=== PATIENT | female | born 1945 | race Caucasian/White ===

== ENCOUNTER 2018-06-27 06:52 | Day surgery (SDC) | payer MEDICARE ==
[~2018-06-27] VITALS: Ht 161.3 cm; Wt 64.0 kg
[2018-06-27] MEDS ORDERED: LACTATED RINGERS 1,000 ML IV SCH (07:50)
[2018-06-27 08:04] VITALS: BP 125/76
[2018-06-27] MEDS ORDERED: CYCL1DRO EACHEYE (08:04)
[2018-06-27] MEDS ORDERED: LEVO125T PO (08:04)
[2018-06-27] MEDS ORDERED: LEVO112T2 PO (08:04)
[2018-06-27] MEDS ORDERED: B-CA1TAB PO (08:04)
[2018-06-27] MEDS ORDERED: LIOT5TAB10 PO (08:04)
[2018-06-27] MEDS ORDERED: IRON45TA6 PO (08:04)
[2018-06-27] MEDS ORDERED: PNV1TABL97 PO (08:04)
[2018-06-27] MEDS ORDERED: MAGN64TA7 PO (08:04)
[2018-06-27] MEDS ORDERED: ESTR1PAT25 TD (08:04)
[2018-06-27] MEDS ORDERED: OLME20TA17 PO (08:04)
[2018-06-27] MEDS ORDERED: MIDAZOLAM 1 MG/ML, 2ML ONE (08:23)
[2018-06-27 08:31] LABS: MEAN CORPUSCULAR HEMOGLOBIN 31.7 pg (27.0-34.8); MEAN CORPUSCULAR HGB CONC 32.9 g/dL (32.4-35.8); MEAN CORPUSCULAR VOLUME 96.4 fL (80-100); MEAN PLATELET VOLUME 7.6 fL (7.4-10.4); PLATELET COUNT 282 x10^3/uL (130-400); RED BLOOD COUNT 3.97 x10^6/uL (3.82-5.3); RED CELL DISTRIBUTION WIDTH 15.9 % (9.6-15.2)
[2018-06-27 08:32] LABS: ALANINE AMINOTRANSFERASE 26 U/L (12-78); ALBUMIN 3.7 g/dL (3.4-5.0); ANION GAP 6 mmol/L (5-15); CHLORIDE 108 mmol/L (98-107); CREATININE 0.72 mg/dL (0.55-1.02)
[2018-06-27 08:34] LABS: ALKALINE PHOSPHATASE 68 U/L (45-117); BILIRUBIN,TOTAL 0.3 mg/dL (0.2-1.0); TOTAL PROTEIN 7.2 g/dL (6.4-8.2)
[2018-06-27 08:57] LABS: MD YES
[2018-06-27] MEDS ORDERED: PROPOFOL 10 MG/ML, 50ML ONE (09:00)
[2018-06-27 09:02] LABS: <PLATELET ESTIMATE> ADEQUATE; <PLT MORPHOLOGY> NORMAL PLT MORPH; <RBC MORPHOLOGY> NORMAL; EOS#(MANUAL) 0.15 x10^3/uL (0.0-0.4); EOS% (MANUAL) 5 % (1-7); LYMPH#(MANUAL) 0.87 x10^3/uL (1-3.4); LYMPHS% (MANUAL) 29 % (22-44); MONOS#(MANUAL) 0.33 x10^3/uL (0.3-2.7); MONOS% (MANUAL) 11 % (2-9); SEG#(MANUAL) 1.65 x10^3/uL (1.8-6.8); SEGS% (MANUAL) 55 % (42-75)
== END 2018-06-27 11:20 | disposition home or self-care (01) ==
LOC: OUT 06:52
PROVIDERS: ATTEND Internal Medicine
DX: K29.70 Gastritis, unspecified, without bleeding (principal); K29.80 Duodenitis without bleeding; D18.1 Lymphangioma, any site; E03.9 Hypothyroidism, unspecified; I10 Essential (primary) hypertension; Z88.0 Allergy status to penicillin; Z88.8 Allergy status to other drugs, medicaments and biological substances
CPT/HCPCS: 36415; 43235; 80053; 85025; J2250; J2704; J7120

== ENCOUNTER 2020-02-07 15:12 | Emergency (ER) | payer MEDICARE ==
[~2020-02-07] VITALS: Ht 160 cm; Wt 67.3 kg
[~2020-02-07 15:12] MED LIST: B-CA1TAB PO; CYCL1DRO EACHEYE; ESTR1PAT25 TD; IRON45TA6 PO; LEVO112T2 PO; LEVO125T PO; LIOT5TAB10 PO; MAGN64TA7 PO; OLME20TA17 PO; PNV1TABL97 PO
[2020-02-07] MEDS ORDERED: LIDODERM 5% PATCH TD ONE ×2 (17:30→17:51)
--- NOTE | 2020-02-07 17:35 | NUR ---
PT STATES SHE FELL YESTERDAY AND HIT HEAD. PT WAS DIZZY AFTER FALL, NO LOC. PER PT WAS CONFUSED FOR FEW MINUTES. NO OPEN WOUNDS. DENIES JACQUES, VISION CHANGES. NO CP OR SOB. NO OTHER TRAUMA OR INJURIES FROM FALL. PT SATES SHE TRIPPED.
[2020-02-07 17:56] VITALS: BP 141/85
--- NOTE | 2020-02-07 17:57 | NUR ---
PT RESTING, LIDO PATCH APPLIED TO LEFT NECK FOR PAIN RELIEF. PT WAITING FOR CT. VSS.
--- NOTE | 2020-02-07 18:45 | NUR ---
Patient/Caregiver given discharge instructions and they have confirmed that they understand the instructions. Patient ambulatory with steady gait.
[2020-02-08] MEDS ORDERED: LIDODERM REMOVE PATCH NOTE XX SCH (05:30)
== END 2020-02-07 18:51 | disposition home or self-care (01) ==
LOC: ED 16:57
DX: S06.0X0A Concussion without loss of consciousness, initial encounter (principal); E03.9 Hypothyroidism, unspecified; R55 Syncope and collapse; R41.0 Disorientation, unspecified; W01.0XXA Fall on same level from slipping, tripping and stumbling without subsequent striking against object, initial encounter; Y93.89 Activity, other specified; Y92.89 Other specified places as the place of occurrence of the external cause; Y99.8 Other external cause status
CPT/HCPCS: 70450; 72125; 99285